=== PATIENT | male | born 1975 | race African-American/Black ===

== ENCOUNTER 2016-06-01 15:07 | Emergency (ER) | payer OTHER ==
[~2016-06-01] VITALS: Ht 170.2 cm; Wt 70.0 kg
[2016-06-01 15:58] LABS: HEMATOCRIT 43.9 % (39.0-50.0); HEMOGLOBIN 14.9 g/dl (14.0-18.0); IMMATURE GRANULOCYTES 0.3 % (0.0-1.0); MEAN CELL VOLUME 91.6 fL CALC (80.0-100.0); MEAN CORPUSCULAR HGB 31.1 pG CALC (26.0-32.0); MEAN CORPUSCULAR HGB CONC 33.9 g/L CALC (32.0-36.0); NEUT# 4.58 thou/uL (1.82-7.42); RED BLOOD COUNT 4.79 mill/uL (4.70-6.10); RED CELL DISTRI WIDTH 13.2 % (11.5-15.5)
[2016-06-01 16:01] LABS: URINE BILIRUBIN - DIPSTICK NEGATIVE (NEGATIVE); URINE BLOOD DIPSTICK TRACE-LYSED (NEGATIVE); URINE CLARITY SLIGHT CLOUDY; URINE COLOR YELLOW; URINE GLUCOSE - DIPSTICK NEGATIVE (NEGATIVE); URINE KETONE NEGATIVE (NEGATIVE); URINE LEUK ESTERASE NEGATIVE (NEGATIVE); URINE NITRITE - DIPSTICK NEGATIVE (Negative); URINE PROTEIN - DIPSTICK NEGATIVE (NEG-TRACE); URINE SPECIFIC GRAVITY 1.025; URINE UROBILINOGEN - DIPSTICK 0.2 E.U./dL (0.2)
[2016-06-01 16:11] LABS: ALBUMIN 4.7 g/dL (3.2-5.0); ALKALINE PHOSPHATASE 83 u/l (38-126); AMYLASE 105 u/l (30-110); ANION GAP 16 (6-22 (CALC)); BILIRUBIN, TOTAL 0.5 mg/dL (0.0-1.4); BUN 12 mg/dL (9-20); BUN/CREATININE RATIO 13 (12-20 (CALC)); CALCIUM 9.3 mg/dL (8.4-10.2); CARBON DIOXIDE 26 mmol/l (22-30); CHLORIDE 105 mmol/l (95-108); CREATININE 0.9 mg/dL (0.7-1.3); GFR > 60 ML/MIN (>=60 (CALC)); GFR FOR AFR.AMER. > 60 ML/MIN (>=60 (CALC)); GLUCOSE 112 mg/dL (75-110); LIPASE 21 u/l (23-300); POTASSIUM 3.8 mmol/l (3.5-5.1); SGOT/AST 32 u/l (17-59); SGPT/ALT 28 u/l (21-72); SODIUM 143 mmol/l (137-146); TOTAL PROTEIN 8.8 g/dL (6.3-8.2)
[2016-06-01] MEDS ORDERED: ULTRAM50 M1 PO (17:08)
[2016-06-01 17:10] VITALS: BP 135/79
== END 2016-06-01 17:20 | disposition home or self-care (01) | DRG 392 ==
LOC: ED 15:07
PROVIDERS: Emergency Medicine
DX: R10.31 Right lower quadrant pain (principal); M79.1 Myalgia
CPT/HCPCS: Q9967

== ENCOUNTER 2016-12-15 18:32 | Emergency (ER) | payer SELFPAY ==
[~2016-12-15] VITALS: Ht 170.2 cm; Wt 65.9 kg
[~2016-12-15 18:32] MED LIST: ULTRAM50 M1 PO
[2016-12-15 20:00] LABS: HEMATOCRIT 43.4 % (39.0-50.0); HEMOGLOBIN 14.5 g/dl (14.0-18.0); IMMATURE GRANULOCYTES 0.3 % (0.0-1.0); MEAN CORPUSCULAR HGB 31.7 pG CALC (26.0-32.0); MEAN CORPUSCULAR HGB CONC 33.4 g/L CALC (32.0-36.0); NEUT# 5.48 thou/uL (1.82-7.42); RED BLOOD COUNT 4.57 mill/uL (4.70-6.10); RED CELL DISTRI WIDTH 14.1 % (11.5-15.5)
[2016-12-15 20:12] LABS: ALBUMIN 4.5 g/dL (3.2-5.0); ALKALINE PHOSPHATASE 91 u/l (38-126); ANION GAP 15 (6-22 (CALC)); BILIRUBIN, TOTAL 0.6 mg/dL (0.0-1.4); BUN 12 mg/dL (9-20); BUN/CREATININE RATIO 11 (12-20 (CALC)); CALCIUM 9.3 mg/dL (8.4-10.2); CARBON DIOXIDE 27 mmol/l (22-30); CHLORIDE 107 mmol/l (95-108); GFR > 60 ML/MIN (>=60 (CALC)); GFR FOR AFR.AMER. > 60 ML/MIN (>=60 (CALC)); GLUCOSE 86 mg/dL (75-110); POTASSIUM 4.1 mmol/l (3.5-5.1); SGOT/AST 25 u/l (17-59); SGPT/ALT 28 u/l (21-72); SODIUM 146 mmol/l (137-146); TOTAL PROTEIN 8.4 g/dL (6.3-8.2)
[2016-12-15] MEDS ORDERED: ORPHENADRINE100 MG PO (22:37)
[2016-12-15] MEDS ORDERED: ULTRAM50 M1 PO (22:37)
[2016-12-15 22:45] VITALS: BP 122/80
== END 2016-12-15 22:45 | disposition home or self-care (01) | DRG 556 ==
LOC: ED 18:32
PROVIDERS: Emergency Medicine
DX: M79.651 Pain in right thigh (principal); M25.451 Effusion, right hip; M25.551 Pain in right hip
CPT/HCPCS: Q9967

== ENCOUNTER 2017-09-17 21:36 | Emergency (ER) | payer SELFPAY ==
[~2017-09-17] VITALS: Ht 170.2 cm; Wt 66.0 kg
[~2017-09-17 21:36] MED LIST changes: +ORPHENADRINE100 MG PO
[2017-09-17] MEDS ORDERED: IBUPROFEN600 MG PO (23:50)
[2017-09-18 00:13] VITALS: BP 141/90
== END 2017-09-18 00:15 | disposition home or self-care (01) | DRG 605 ==
LOC: ED 21:36
DX: S90.02XA Contusion of left ankle, initial encounter (principal); W22.8XXA Striking against or struck by other objects, initial encounter; Y93.89 Activity, other specified; Y92.89 Other specified places as the place of occurrence of the external cause

== ENCOUNTER 2018-04-12 20:16 | Emergency (ER) | payer SELFPAY ==
[~2018-04-12] VITALS: Ht 170.2 cm; Wt 62.0 kg
[~2018-04-12 20:16] MED LIST changes: +IBUPROFEN600 MG PO
[2018-04-12] MEDS ORDERED: FIORICET PO (22:08)
[2018-04-12 22:56] VITALS: BP 148/76
== END 2018-04-12 22:50 | disposition home or self-care (01) | DRG 103 ==
LOC: ED 20:16
DX: G43.909 Migraine, unspecified, not intractable, without status migrainosus (principal); F17.200 Nicotine dependence, unspecified, uncomplicated